=== PATIENT | male | born 1995 | race Caucasian/White ===

== ENCOUNTER 2021-02-27 09:45 | Emergency (ER) | payer MEDICAID, OTHER ==
[~2021-02-27] VITALS: Ht 190.5 cm; Wt 116.0 kg
[2021-02-27] MEDS ORDERED: IBUPROFEN 600MG TABLET PO ONE (10:00)
[2021-02-27] MEDS ORDERED: CYCL5TAB MT (10:01)
[2021-02-27] MEDS ORDERED: IBUP-2029 MT (10:01)
[2021-02-27 10:30] VITALS: BP 139/73
== END 2021-02-27 10:30 | disposition home or self-care (01) ==
LOC: ER 09:45
DX: M62.830 Muscle spasm of back (principal)
CPT/HCPCS: 99282

== ENCOUNTER 2023-09-19 07:43 | Emergency (ER) | payer MEDICAID, OTHER ==
[~2023-09-19] VITALS: Ht 182.9 cm; Wt 100.0 kg
[~2023-09-19 07:43] MED LIST: CYCL5TAB MT; IBUP-2029 MT
[2023-09-19 07:51] VITALS: TEMP 97.9; O2SAT 99
[2023-09-19] MEDS ORDERED: ACETAMINOPHEN WITH CODEINE 300/30MG TABLET PO STA (11:02)
[2023-09-19] MEDS ORDERED: KETOROLAC 60MG/2ML VIAL IM STA (11:02)
[2023-09-19] MEDS ORDERED: NAPR-681 PO (12:38)
[2023-09-19] MEDS ORDERED: CYCL5TAB MT (12:38)
[2023-09-19 12:54] VITALS: BP 140/85; PULSE 82; RESP 20
== END 2023-09-19 12:56 | disposition home or self-care (01) ==
LOC: ER 07:43
DX: M54.42 Lumbago with sciatica, left side (principal)
CPT/HCPCS: 96372; 99283; J1885